=== PATIENT | female | born 1945 ===

== ENCOUNTER → 2017-09-14 | Outpatient (CLI) | payer OTHER ==
[~2017-09-14] MED LIST: CHOL10002 PO; Calcium + Vita1 EACH PO; Cinnamon500 MG PO; Cranberry Conc500 MG PO; FLAXSEED1000 MG PO; FOLI400 PO; Magnesium500 M1 PO
[2017-09-14 15:49] LABS: Stool Occult Bld Immuno 1 Negative (NEGATIVE)
== END ==
LOC: LAB SHORT 09:52 → LAB EV 09:52
PROVIDERS: Internal Medicine
DX: Z12.11 Encounter for screening for malignant neoplasm of colon (principal)
CPT/HCPCS: G0328

== ENCOUNTER 2018-03-28 07:14 | Day surgery (SDC) | payer OTHER | END 2018-03-28 23:42 | disposition home or self-care (01) | LOC: MOI MAM 07:14 | PROC: 0HBT3ZX Excision of Right Breast, Percutaneous Approach, Diagnostic (ICD-10-PCS; principal; 2018-03-28) | DX: C50.911 Malignant neoplasm of unspecified site of right female breast (principal); Z17.0 Estrogen receptor positive status [ER+] | CPT/HCPCS: 19083; 77065; 88305; 88342; 88360; A4648; G0279 ==

== ENCOUNTER → 2019-03-09 | Outpatient (CLI) | payer OTHER ==
[2019-03-11 14:07] LABS: HPV 16 Negative (Negative); HPV 18 Negative (Negative); HPV OTHER HR TYPES Negative (Negative)
== END | disposition home or self-care (01) ==
LOC: LAB 16:07 → LAB SHORT 16:07
PROVIDERS: Nurse Practitioner Women's Health
DX: Z12.4 Encounter for screening for malignant neoplasm of cervix (principal); N95.1 Menopausal and female climacteric states; N95.2 Postmenopausal atrophic vaginitis; Z91.89 Other specified personal risk factors, not elsewhere classified
CPT/HCPCS: 87624; G0123

== ENCOUNTER → 2019-06-13 | Outpatient (CLI) | payer OTHER ==
[2019-06-14 05:30] LABS: Stool Occult Bld Immuno 1 Negative (NEGATIVE)
== END | disposition home or self-care (01) ==
LOC: LAB SHORT 08:20 → LAB EV 08:20
PROVIDERS: Internal Medicine
DX: Z12.11 Encounter for screening for malignant neoplasm of colon (principal)
CPT/HCPCS: G0328

== ENCOUNTER 2021-06-15 08:03 | Day surgery (SDC) | payer OTHER ==
[~2021-06-15] VITALS: Ht 172.7 cm; Wt 79.1 kg
[2021-06-15] MEDS ORDERED: LETR2.5 (08:17)
--- NOTE | 2021-06-15 08:23 | NUR ---
06/15/21 0823 Nadeen Gonzalez TETRACAINE AND PLEDGET PLACED IN RIGHT EYE BY [facility].CB AT 0802
== END 2021-06-15 10:03 | disposition home or self-care (01) ==
LOC: ORSCSDS 08:03
PROVIDERS: Ophthalmology
PROC: 08RJ3JZ Replacement of Right Lens with Synthetic Substitute, Percutaneous Approach (ICD-10-PCS; principal; 2021-06-15 09:15)
DX: H25.11 Age-related nuclear cataract, right eye (principal)
CPT/HCPCS: J2001; J2250; J3010; J3301; J7040; V2632

== ENCOUNTER 2021-07-13 07:54 | Day surgery (SDC) | payer OTHER ==
[~2021-07-13] VITALS: Ht 152.4 cm; Wt 80.4 kg
[~2021-07-13 07:54] MED LIST changes: +LETR2.5
--- NOTE | 2021-07-13 09:08 | NUR ---
07/13/21 0908 MOOKIE SAUL TETRACAINE DROP INSTILLED AT 0820. PLEDGETT INSERTED AT 0822.
== END 2021-07-13 10:10 | disposition home or self-care (01) ==
LOC: ORSCSDS 07:54
PROVIDERS: Ophthalmology
PROC: 08RK3JZ Replacement of Left Lens with Synthetic Substitute, Percutaneous Approach (ICD-10-PCS; principal; 2021-07-13 09:15)
DX: H25.12 Age-related nuclear cataract, left eye (principal); E66.9 Obesity, unspecified; Z68.34 Body mass index [BMI] 34.0-34.9, adult; Z79.899 Other long term (current) drug therapy
CPT/HCPCS: J2001; J2250; J3010; J3301; J7040; V2632